=== PATIENT | female | born 1950 | race Hispanic/Latino ===

== ENCOUNTER 2018-07-31 10:39 | Emergency (ER) | payer MEDICARE ==
--- NOTE | 2018-07-31 11:13 | ED PDOC ---
HPI: CCC, URI, Sore Throat Time Seen by Provider: 07/31/18 11:04 Chief Complaint (Nursing): Cough, Cold, Congestion History Per: Patient Onset/Duration Of Symptoms: Other (3 weeks) Current Symptoms Are (Timing): Still Present Associated Symptoms: Cough, Sputum. denies: Fever Severity: Moderate Additional Complaint(s): Cough congestion, productive brown sputum x 3 weeks. Denies fever or SOB. No improvement with 5 days Prednisone. Past Medical History Vital Signs: Last Vital Signs Temp 99.0 F 07/31/18 10:53 Pulse 71 07/31/18 10:53 Resp 18 07/31/18 10:53 BP 125/75 07/31/18 10:53 Pulse Ox 97 07/31/18 10:53 - Medical History PMH: HTN - Surgical History Surgical History: Back Surgery - Family History Family History: States: Unknown Family Hx - Home Medications Home Medications: Ambulatory Orders Medication Instructions Recorded Albuterol HFA [Ventolin HFA 90 2 puff IH Q4H #1 puff 07/31/18 mcg/actuation (8 g)] Azithromycin [Zithromax] 250 mg PO DAILY #6 tab 07/31/18 - Allergies Allergies/Adverse Reactions: Allergies Allergy/AdvReac Type Severity Reaction Status Date / Time No Known Allergies Allergy Verified 07/31/18 11:07 Review of Systems Constitutional: Negative for: Fever Cardiovascular: Negative for: Chest Pain Respiratory: Positive for: Cough, Sputum. Negative for: Shortness of Breath Physical Exam - Physical Exam Appears: Positive for: Non-toxic, No Acute Distress Skin: Positive for: Normal Color, Warm, DRY ENT: Positive for: Normal ENT Inspection Neck: Positive for: Normal, Painless ROM Cardiovascular/Chest: Positive for: Regular Rate, Rhythm Respiratory: Positive for: Rhonchi. Negative for: Wheezing, Respiratory Distress Extremity: Positive for: Normal ROM Neurologic/Psych: Positive for: Alert, Oriented - ECG O2 Sat by Pulse Oximetry: 97 Disposition - Clinical Impression Clinical Impression: Bronchitis - Patient ED Disposition Is Patient to be Admitted: No Counseled Patient/Family Regarding: Studies Performed, Diagnosis, Need For Followup, Rx Given - Disposition Referrals: [facility] [Outside] Disposition: Routine/Home Disposition Time: 11:50 Condition: FAIR Prescriptions: Albuterol HFA [Ventolin HFA 90 mcg/actuation (8 g)] 2 puff IH Q4H #1 puff Azithromycin [Zithromax] 250 mg PO DAILY #6 tab Instructions: Acute Bronchitis Forms: [employer] (Vietnamese)
[2018-07-31 11:59] VITALS: BP 139/72; PULSE 66; RESP 14; TEMP 98.8; O2SAT 100
--- NOTE | 2018-07-31 12:30 | RAD ---
Date of service: 07/31/2018 HISTORY: cough COMPARISON: No prior. TECHNIQUE: Chest PA and lateral FINDINGS: LUNGS: No active pulmonary disease. PLEURA: No significant pleural effusion identified. No pneumothorax apparent. CARDIOVASCULAR: Normal. OSSEOUS STRUCTURES: No significant abnormalities. VISUALIZED UPPER ABDOMEN: Normal. OTHER FINDINGS: Incidentally noted spinal stimulator midline posterior thoracic spine IMPRESSION: No active disease.
== END 2018-07-31 12:05 | disposition home or self-care (01) ==
LOC: H.ER 10:39
DX: J40 Bronchitis, not specified as acute or chronic (principal); I10 Essential (primary) hypertension